=== PATIENT | male | born 1945 | race Caucasian/White ===

== ENCOUNTER 2018-11-15 23:47 | Emergency (ER) | payer BC, MEDICARE ==
[2018-11-16] MEDS ORDERED: Ketorolac 30 MG/ML SDV IVPUSH ONE (00:13)
--- NOTE | 2018-11-16 00:18 | EDM.PDOC ---
ED HPI GENERAL MEDICAL PROBLEM - General Chief Complaint: Chest Pain Stated Complaint: [facility] Time Seen by Provider: 11/16/18 00:09 Source of Information: Reports: Patient, Family, RN Notes Reviewed History Limitations: Reports: No Limitations - History of Present Illness INITIAL COMMENTS - FREE TEXT/NARRATIVE: 73-year-old gentleman presents to the emergency department day complaint of shortness of breath and chest pain with a deep breath, he states is been ill for about a week minimal sputum production does get chest pain with a deep breath this evening felt so weak he was unable to get up after he had fallen out of his chair, no other complaints at this time denies any fevers - Related Data Allergies Allergy/AdvReac Type Severity Reaction Status Date / Time No Known Allergies Allergy Verified 11/15/18 23:52 Home Meds: Home Meds Albuterol Sulfate [Proair Hfa] 8.5 gm IH Q4H PRN 09/02/14 [History] Furosemide 40 mg PO BID 09/02/14 [History] Lisinopril 10 mg PO DAILY 09/02/14 [History] Potassium Chloride [Klor-Con M20] 20 meq PO DAILY 09/02/14 [History] Warfarin Sodium 5 mg PO ASDIRECTED 09/02/14 [History] Warfarin [Coumadin] 2.5 mg PO ASDIRECTED 09/02/14 [History] glipiZIDE [Glipizide] 10 mg PO BID 09/02/14 [History] metFORMIN [Glucophage] 1,000 mg PO BID 09/02/14 [History] Albuterol [Ventolin HFA] 2 puff IH Q4H PRN 11/16/18 [History] Albuterol/Ipratropium [Combivent Respimat] 1 puff IN QID 11/16/18 [History] Albuterol/Ipratropium [DuoNeb 3.0-0.5 MG/3 ML] 3 ml NEB Q4H PRN 11/16/18 [ History] Insulin Degludec [Tresiba Flextouch U-100] 30 units SQ BEDTIME 11/16/18 [History ] Simvastatin 20 mg PO BEDTIME 11/16/18 [History] Past Medical History HEENT History: Reports: Hard of Hearing, Impaired Vision Cardiovascular History: Reports: Afib, Heart Failure Respiratory History: Reports: COPD, Other (See Below) Other Respiratory History: emphysema Endocrine/Metabolic History: Reports: Diabetes, Type II Social & Family History - Tobacco Use Smoking Status *Q: Current Every Day Smoker Years of Tobacco use: 60 Packs/Tins Daily: 1 ED ROS GENERAL - Review of Systems Review Of Systems: See Below Constitutional: Denies: Fever, Chills HEENT: Reports: No Symptoms Respiratory: Reports: Shortness of Breath, Wheezing, Cough Cardiovascular: Reports: Chest Pain GI/Abdominal: Reports: No Symptoms : Reports: No Symptoms Musculoskeletal: Reports: No Symptoms Skin: Reports: No Symptoms Neurological: Reports: No Symptoms ED EXAM, GENERAL - Physical Exam Exam: See Below Free Text/Narrative:: General: Male, not in any distress, alert and oriented x3 HEENT: head is atraumatic normocephalic, eyes pupils equal round reactive to light, sclera clear no conjunctivitis appreciated. Ears tympanic membranes clear and [place] landmarks and light reflex are present bilaterally canals are clear. Nose no septal deviation, nares are clear, no blood present. Mouth mucosa is moist and pink no erythema or exudate noted in soft palate, tongue is midline uvula is midline, dentition is intact. Neck: Supple no thyromegaly no tracheal deviation. Nodes: Cervical nodes subclavicular nodes nontender no palpable lymphadenopathy noted. Lungs: Breath sounds are distant on appreciate any adventitious noises CV: Regular rate and rhythm S1 and S2 appreciated no murmurs rubs or gallops noted. Abdomen: Soft, nontender, no palpable masses or organomegaly appreciated, no distention no guarding bowel sounds are present,. Neuro: Cranial nerves II through XII intact, GCS 15 Skin: Warm and dry, intact Extremities: No lower extremity edema appreciated, Course - Vital Signs Last Recorded V/S: Last Vital Signs Temp 98.9 F 11/16/18 00:03 Pulse 95 11/16/18 02:00 Resp 19 11/16/18 02:00 BP 120/66 11/16/18 02:00 Pulse Ox 95 11/16/18 02:00 - Orders/Labs/Meds Orders: Active Orders 24 hr Category Date Time Status Cardiac Monitoring [RC] .As Directed Care 11/16/18 00:12 Active EKG Documentation Completion [RC] ASDIRECTED Care 11/16/18 00:13 Active EKG 12 Lead [EK] Stat Ther 11/16/18 00:12 Ordered Labs: Laboratory Tests 11/16/18 11/16/18 11/16/18 Range/Units 00:21 00:21 00:21 WBC 9.6 (4.5-11.0) K/uL RBC 4.82 (4.30-5.90) M/uL Hgb 14.4 (12.0-15.0) g/dL Hct 44.5 (40.0-54.0) % MCV 92 (80-98) fL MCH 30 (27-31) pg MCHC 32 (32-36) % Plt Count 224 (150-400) K/uL Neut % (Auto) 78 H (36-66) % Lymph % (Auto) 9 L (24-44) % [place] % (Auto) 11 H (2-6) % Eos % (Auto) 1 L (2-4) % Baso % (Auto) 1 (0-1) % Sodium 139 L (140-148) mmol/L Potassium 3.8 (3.6-5.2) mmol/L Chloride 101 (100-108) mmol/L Carbon Dioxide 29 (21-32) mmol/L Anion Gap 12.8 (5.0-14.0) mmol/L BUN 16 (7-18) mg/dL Creatinine 1.2 (0.8-1.3) mg/dL Est Cr Clr Drug Dosing 51.46 mL/min Estimated GFR (MDRD) 59 L (>60) Glucose 167 H (74-106) mg/dL Lactic Acid 3.6 H (0.4-2.0) mmol/L Calcium 9.6 (8.5-10.1) mg/dL Total Bilirubin 0.8 (0.2-1.0) mg/dL AST 15 (15-37) U/L ALT 14 (12-78) U/L Alkaline Phosphatase 78 (46-116) U/L Creatine Kinase 72 (39-308) U/L CK-MB (CK-2) 0.6 (0-3.6) mg/mL Troponin I 0.047 (0.000-0.056) ng/mL NT-Pro-B Natriuret Pep (5-450) pg/mL Total Protein 7.1 (6.4-8.2) g/dL Albumin 3.5 (3.4-5.0) g/dL Globulin 3.6 H (2.3-3.5) g/dL Albumin/Globulin Ratio 1.0 L (1.2-2.2) 11/16/18 Range/Units 01:53 WBC (4.5-11.0) K/uL RBC (4.30-5.90) M/uL Hgb (12.0-15.0) g/dL Hct (40.0-54.0) % MCV (80-98) fL MCH (27-31) pg MCHC (32-36) % Plt Count (150-400) K/uL Neut % (Auto) (36-66) % Lymph % (Auto) (24-44) % [place] % (Auto) (2-6) % Eos % (Auto) (2-4) % Baso % (Auto) (0-1) % Sodium (140-148) mmol/L Potassium (3.6-5.2) mmol/L Chloride (100-108) mmol/L Carbon Dioxide (21-32) mmol/L Anion Gap (5.0-14.0) mmol/L BUN (7-18) mg/dL Creatinine (0.8-1.3) mg/dL Est Cr Clr Drug Dosing mL/min Estimated GFR (MDRD) (>60) Glucose (74-106) mg/dL Lactic Acid (0.4-2.0) mmol/L Calcium (8.5-10.1) mg/dL Total Bilirubin (0.2-1.0) mg/dL AST (15-37) U/L ALT (12-78) U/L Alkaline Phosphatase (46-116) U/L Creatine Kinase (39-308) U/L CK-MB (CK-2) (0-3.6) mg/mL Troponin I (0.000-0.056) ng/mL NT-Pro-B Natriuret Pep 607 H (5-450) pg/mL Total Protein (6.4-8.2) g/dL Albumin (3.4-5.0) g/dL Globulin (2.3-3.5) g/dL Albumin/Globulin Ratio (1.2-2.2) Meds: Medications Discontinued Medications Generic Name Dose Route Start Last Admin Trade Name Kayleigh PRN Reason Stop Dose Admin Ketorolac Tromethamine 15 mg 11/16/18 00:13 11/16/18 00:40 Toradol IVPUSH 11/16/18 00:14 15 mg ONETIME ONE Administration Departure - Departure Time of Disposition: 02:28 Disposition: Home, Self-Care 01 Condition: Fair Clinical Impression: COPD exacerbation Referrals: PCP,None [Primary Care Provider] - Forms: ED Department Discharge Additional Instructions: Take full course of antibiotics, take full course of prednisone, please follow- up with your primary care in 3-5 days for reevaluation call return to the emergency department with worsening of symptoms - My Orders Last 24 Hours: My Active Orders 11/16/18 00:12 Cardiac Monitoring [RC] .As Directed EKG 12 Lead [EK] Stat 11/16/18 00:13 EKG Documentation Completion [RC] ASDIRECTED - Assessment/Plan Last 24 Hours: My Active Orders 11/16/18 00:12 Cardiac Monitoring [RC] .As Directed EKG 12 Lead [EK] Stat 11/16/18 00:13 EKG Documentation Completion [RC] ASDIRECTED Plan: Assessment Acuity = acute Site and laterality = COPD exacerbation Etiology = unknown etiology Manifestations = dyspnea] Location of injury = Home Lab values = CBC, CMP unremarkable lactic acid elevated at 3.6 consistent lactic acidosis troponin normal range 0.047 BNP slightly elevated 607 chest x- ray does show questionable 11 mm nodule however he recently had a CT scan 5 months ago describing no acute process, EKG demonstrates atrial fibrillation Plan I did review lab work and x-ray results with him discuss options such as hospitalization. He declined at this time would like to try outpatient therapy first he's not having any chest pain is only of pain when he takes a deep breath however he is feeling much better this has resolved. Therefore will try doxycycline on her milligrams by mouth twice a day 7 days and prednisone 20 mg once day for 5 days have him follow-up with his primary care in 3-5 days if no improvement This note was dictated using [employer] voice recognition software please call with any questions on syntax or grammar.
--- NOTE | 2018-11-16 01:33 | CRLCR ---
INDICATION: chest pain HISTORY: Chest pain. COMPARISON: 11/15/2016. TECHNIQUE: Chest one-view portable. FINDINGS: Diffuse pulmonary hyperinflation, stable. Atelectasis or scarring at the lung bases. There is no acute airspace disease. There is an 11 millimeter opacity in the left upper lung zone on this single AP view. This is not clearly seen on the comparison study from 11/15/2016. There is no pneumothorax. The central airway is normal. Lateral costophrenic sulci are sharp. IMPRESSION: 1. No significant change when compared with 11/15/2016. 2. Questionable 11 mm density overlapping of the left posterior 3rd rib, which may be further evaluated on a nonemergent basis with a chest CT. Dictated by Luis E Christianson MD @ 11/16/2018 1:32:56 AM Dictated by: Luis E Christianson MD @ 11/16/2018 01:33:06 (Electronically Signed)
[2018-11-16 02:23] VITALS: BP 120/66
== END 2018-11-16 03:19 | disposition home or self-care (01) ==
LOC: JP.ED 23:47
DX: J44.1 Chronic obstructive pulmonary disease with (acute) exacerbation (principal); I50.9 Heart failure, unspecified; E11.9 Type 2 diabetes mellitus without complications; F17.210 Nicotine dependence, cigarettes, uncomplicated; Z79.899 Other long term (current) drug therapy
CPT/HCPCS: 36415; 71045; 80053; 82550; 82553; 83605; 83880; 84484; 85025; 93005; 96374; 99285; J1885

== ENCOUNTER 2019-05-24 14:00 | Observation (INO) | payer MEDICARE ==
--- NOTE | 2019-05-24 14:40 | EDM.PDOC ---
ED HPI GENERAL MEDICAL PROBLEM - General Chief Complaint: Gastrointestinal Problem Stated Complaint: DARK BLOOD IN STOOL Time Seen by Provider: 05/24/19 14:40 Source of Information: Reports: Patient History Limitations: Reports: No Limitations - History of Present Illness INITIAL COMMENTS - FREE TEXT/NARRATIVE: pt arrived with a history of black tarry stools for the past 3-4 days. He was seen at the clinic on saturday and he is not sure if the stool got checked for blood. His bms have been quite irregular. Onset: Gradual, Other ( last 3-4 days. ) Duration: Hour(s): Location: Reports: Abdomen, Other (pt is not having pain in the abdoman. ) Associated Symptoms: Reports: Weakness - Related Data Allergies Allergy/AdvReac Type Severity Reaction Status Date / Time No Known Allergies Allergy Verified 05/24/19 14:49 Home Meds: Home Meds Albuterol Sulfate [Proair Hfa] 8.5 gm IH Q4H PRN 09/02/14 [History] Furosemide 40 mg PO BID 09/02/14 [History] Lisinopril 10 mg PO DAILY 09/02/14 [History] Potassium Chloride [Klor-Con M20] 20 meq PO DAILY 09/02/14 [History] Warfarin Sodium 5 mg PO ASDIRECTED 09/02/14 [History] Warfarin [Coumadin] 2.5 mg PO ASDIRECTED 09/02/14 [History] glipiZIDE [Glipizide] 10 mg PO BID 09/02/14 [History] metFORMIN [Glucophage] 1,000 mg PO BID 09/02/14 [History] Albuterol [Ventolin HFA] 2 puff IH Q4H PRN 11/16/18 [History] Albuterol/Ipratropium [Combivent Respimat] 1 puff IN QID 11/16/18 [History] Albuterol/Ipratropium [DuoNeb 3.0-0.5 MG/3 ML] 3 ml NEB Q4H PRN 11/16/18 [ History] Insulin Degludec [Tresiba Flextouch U-100] 30 units SQ BEDTIME 11/16/18 [History ] Simvastatin 20 mg PO BEDTIME 11/16/18 [History] Past Medical History HEENT History: Reports: Hard of Hearing, Impaired Vision Cardiovascular History: Reports: Afib, Heart Failure Respiratory History: Reports: COPD, Other (See Below) Other Respiratory History: emphysema Endocrine/Metabolic History: Reports: Diabetes, Type II ED ROS GENERAL - Review of Systems Review Of Systems: See Below Constitutional: Reports: Weakness HEENT: Reports: No Symptoms Respiratory: Reports: No Symptoms Cardiovascular: Reports: No Symptoms Endocrine: Reports: No Symptoms GI/Abdominal: Reports: Black Stool : Reports: No Symptoms Musculoskeletal: Reports: No Symptoms Skin: Reports: No Symptoms Neurological: Reports: No Symptoms Psychiatric: Reports: No Symptoms ED EXAM, GI/ABD - Physical Exam Exam: See Below Text/Narrative:: pt arrived because he is having black tarry stools. Exam Limited By: No Limitations General Appearance: Alert, Anxious, Moderate Distress Ears: Normal TMs Nose: Normal Inspection Throat/Mouth: Normal Inspection Head: Atraumatic Neck: Normal Inspection Respiratory/Chest: No Respiratory Distress Cardiovascular: Regular Rate, Rhythm GI/Abdominal Exam: Soft, Non-Tender (Male) Exam: Deferred Rectal (Males) Exam: Black Stool, Other (no masses noted. ) Back Exam: Normal Inspection Course - Vital Signs Last Recorded V/S: Last Vital Signs Temp 35.6 C 05/24/19 14:37 Pulse 96 05/24/19 16:32 Resp 22 H 05/24/19 14:37 BP 117/68 05/24/19 16:32 Pulse Ox 96 05/24/19 16:32 - Orders/Labs/Meds Orders: Active Orders 24 hr Category Date Time Status Patient Status Manage Transfer [TRANSFER] Routine ADT 05/24/19 16:14 Active Sodium Chloride 0.9% [Normal Saline] 1,000 ml Med 05/24/19 14:45 Active IV ASDIRECTED Resuscitation Status Routine Resus Stat 05/24/19 16:18 Ordered Medication Orders Sodium Chloride (Normal Saline) 1,000 mls @ 300 mls/hr IV ASDIRECTED ROSA ELENA Last Admin: 05/24/19 15:01 Dose: 300 mls/hr Labs: Laboratory Tests 05/24/19 05/24/19 05/24/19 Range/Units 14:43 14:46 14:46 WBC 13.1 H (4.5-11.0) K/uL RBC 4.32 (4.30-5.90) M/uL Hgb 13.1 (12.0-15.0) g/dL Hct 40.3 (40.0-54.0) % MCV 93 (80-98) fL MCH 30 (27-31) pg MCHC 33 (32-36) % Plt Count 309 (150-400) K/uL Neut % (Auto) 72 H (36-66) % Lymph % (Auto) 18 L (24-44) % [place] % (Auto) 9 H (2-6) % Eos % (Auto) 1 L (2-4) % Baso % (Auto) 0 (0-1) % PT 24.2 H (9.5-12.0) sec INR 2.35 H (0.80-1.20) Sodium (140-148) mmol/L Potassium (3.6-5.2) mmol/L Chloride (100-108) mmol/L Carbon Dioxide (21-32) mmol/L Anion Gap (5.0-14.0) mmol/L BUN (7-18) mg/dL Creatinine (0.8-1.3) mg/dL Est Cr Clr Drug Dosing mL/min Estimated GFR (MDRD) (>60) Glucose (74-106) mg/dL Calcium (8.5-10.1) mg/dL Total Bilirubin (0.2-1.0) mg/dL AST (15-37) U/L ALT (12-78) U/L Alkaline Phosphatase (46-116) U/L C-Reactive Protein 0.57 H (0.0-0.3) mg/dL Total Protein (6.4-8.2) g/dL Albumin (3.4-5.0) g/dL Globulin (2.3-3.5) g/dL Albumin/Globulin Ratio (1.2-2.2) 05/24/19 Range/Units 14:46 WBC (4.5-11.0) K/uL RBC (4.30-5.90) M/uL Hgb (12.0-15.0) g/dL Hct (40.0-54.0) % MCV (80-98) fL MCH (27-31) pg MCHC (32-36) % Plt Count (150-400) K/uL Neut % (Auto) (36-66) % Lymph % (Auto) (24-44) % [place] % (Auto) (2-6) % Eos % (Auto) (2-4) % Baso % (Auto) (0-1) % PT (9.5-12.0) sec INR (0.80-1.20) Sodium 141 (140-148) mmol/L Potassium 4.1 (3.6-5.2) mmol/L Chloride 104 (100-108) mmol/L Carbon Dioxide 30 (21-32) mmol/L Anion Gap 7.1 (5.0-14.0) mmol/L BUN 22 H (7-18) mg/dL Creatinine 1.1 (0.8-1.3) mg/dL Est Cr Clr Drug Dosing 57.13 mL/min Estimated GFR (MDRD) > 60 (>60) Glucose 177 H (74-106) mg/dL Calcium 8.9 (8.5-10.1) mg/dL Total Bilirubin 0.7 (0.2-1.0) mg/dL AST 14 L (15-37) U/L ALT 17 (12-78) U/L Alkaline Phosphatase 77 (46-116) U/L C-Reactive Protein (0.0-0.3) mg/dL Total Protein 6.6 (6.4-8.2) g/dL Albumin 3.4 (3.4-5.0) g/dL Globulin 3.2 (2.3-3.5) g/dL Albumin/Globulin Ratio 1.1 L (1.2-2.2) Meds: Medications Generic Name Dose Route Start Last Admin Trade Name Freq PRN Reason Stop Dose Admin Sodium Chloride 1,000 mls @ 300 mls/hr 05/24/19 14:45 05/24/19 15:01 Normal Saline IV 300 mls/hr ASDIRECTED [facility] Administration - Re-Assessments/Exams Free Text/Narrative Re-Assessment/Exam: 05/24/19 15:45 stool is positive for blood. He is not having abdomanal pain. He has a hg of 13 , He has copd and is sob. 10/21 15:46 pt does have o2 sats at 97 05/24/19 17:04 chest sounded very congested and he had a chest xray that showed hyperinflation but no infiltrate. Departure - Departure Time of Disposition: 17:05 Disposition: Admitted As Inpatient 64 Condition: Fair Clinical Impression: Upper GI bleeding, History of Coumadin therapy - Discharge Information Referrals: Matty Clay MD [Primary Care Provider] - Forms: ED Department Discharge Care Plan Goals: admit to Dr medina - My Orders Last 24 Hours: My Active Orders 05/24/19 14:45 Sodium Chloride 0.9% [Normal Saline] 1,000 ml IV ASDIRECTED - Assessment/Plan Last 24 Hours: My Active Orders 05/24/19 14:45 Sodium Chloride 0.9% [Normal Saline] 1,000 ml IV ASDIRECTED
[2019-05-24] MEDS ORDERED: Sodium Chloride 0.9% 1,000 ML IV SCH (14:45)
--- NOTE | 2019-05-24 16:24 | CRLCR ---
Indication: Shortness of breath. COPD. Technique: PA and lateral views the chest were obtained. Comparison: January 16, 2019. Findings: The heart is normal in size. The lungs are hyperinflated. No infiltrate, pleural effusion, or pneumothorax is identified. Impression: Hyperinflation. Dictated by Lisa Leone MD @ May 24 2019 4:22PM Signed by Dr. Lisa Leone @ May 24 2019 4:23PM
--- NOTE | 2019-05-24 16:27 | PCM.HP.2 ---
H&P History of Present Illness - General Date of Service: 05/24/19 Admit Problem/Dx: Admission Diagnosis/Problem Admission Diagnosis/Problem Bleeding Source of Information: Patient, Family, Provider, RN Notes Reviewed History Limitations: Reports: No Limitations - History of Present Illness Initial Comments - Free Text/Narative: Mr. Gaffney is a 74-year-old gentleman who was admitted to observation status through the emergency department with a six-day history of melenic-appearing stools. First noted approximately 6 days ago, 4 days ago presented to the walk- in clinic labs were obtained and he was scheduled for outpatient colonoscopy on June 11. Since then he's had persistent melenic-appearing stool and he presented to the emergency department today for further evaluation. He is hemodynamically stable and his hemoglobin level is within normal range. Stool for occult blood was found to be positive. He is on long-term oral anticoagulation with warfarin because of underlying atrial fibrillation, INR was 2.2. - Related Data Allergies/Adverse Reactions: Allergies Allergy/AdvReac Type Severity Reaction Status Date / Time No Known Allergies Allergy Verified 05/24/19 14:49 Home Medications: Home Meds Albuterol Sulfate [Proair Hfa] 8.5 gm IH Q4H PRN 09/02/14 [History] Furosemide 40 mg PO BID 09/02/14 [History] Lisinopril 10 mg PO DAILY 09/02/14 [History] Potassium Chloride [Klor-Con M20] 20 meq PO DAILY 09/02/14 [History] Warfarin Sodium 5 mg PO ASDIRECTED 09/02/14 [History] Warfarin [Coumadin] 2.5 mg PO ASDIRECTED 09/02/14 [History] glipiZIDE [Glipizide] 10 mg PO BID 09/02/14 [History] metFORMIN [Glucophage] 1,000 mg PO BID 09/02/14 [History] Albuterol [Ventolin HFA] 2 puff IH Q4H PRN 11/16/18 [History] Albuterol/Ipratropium [Combivent Respimat] 1 puff IN QID 11/16/18 [History] Albuterol/Ipratropium [DuoNeb 3.0-0.5 MG/3 ML] 3 ml NEB Q4H PRN 11/16/18 [ History] Insulin Degludec [Tresiba Flextouch U-100] 30 units SQ BEDTIME 11/16/18 [History ] Simvastatin 20 mg PO BEDTIME 11/16/18 [History] Past Medical History HEENT History: Reports: Hard of Hearing, Impaired Vision Cardiovascular History: Reports: Afib, Heart Failure Respiratory History: Reports: COPD, Other (See Below) Other Respiratory History: emphysema Endocrine/Metabolic History: Reports: Diabetes, Type II Dermatologic History: Reports: Seborrheic Dermatitis - Past Surgical History Head Surgeries/Procedures: Reports: None HEENT Surgical History: Reports: Tonsillectomy Cardiovascular Surgical History: Reports: None Respiratory Surgical History: Reports: None Endocrine Surgical History: Reports: None Dermatological Surgical History: Reports: None Social & Family History - Tobacco Use Smoking Status *Q: Current Every Day Smoker Years of Tobacco use: 50 Packs/Tins Daily: 1 Used Tobacco, but Quit: No Second Hand Smoke Exposure: No - Caffeine Use Caffeine Use: Reports: Coffee, Soda - Recreational Drug Use Recreational Drug Use: No H&P Review of Systems - Review of Systems: Review Of Systems: See Below General: Reports: Weakness. Denies: Fever, Chills HEENT: Reports: No Symptoms Pulmonary: Reports: Shortness of Breath. Denies: Wheezing, Pleuritic Chest Pain , Cough, Sputum, Hemoptysis Cardiovascular: Reports: No Symptoms Gastrointestinal: Reports: Melena. Denies: Abdominal Pain, Constipation, Diarrhea, Decreased Appetite, Difficulty Swallowing, Distension, Hematemesis, Nausea, Vomiting Genitourinary: Reports: No Symptoms Musculoskeletal: Reports: No Symptoms Skin: Reports: No Symptoms Psychiatric: Reports: No Symptoms Neurological: Reports: No Symptoms Hematologic/Lymphatic: Reports: No Symptoms Immunologic: Reports: No Symptoms Exam - Exam Exam: See Below - Vital Signs Vital Signs: Last Vital Signs Temp 96.1 F 05/24/19 14:37 Pulse 97 05/24/19 14:37 Resp 22 H 05/24/19 14:37 BP 117/65 05/24/19 14:37 Pulse Ox 97 05/24/19 14:37 Weight: 218 lb - Exam Quality Assessment: DVT Prophylaxis General: Alert, Oriented, Cooperative, Mild Distress HEENT: Conjunctiva Clear, Hearing Intact, Mucosa Moist & [place], Normal Nasal Septum, Posterior Pharynx Clear, Pupils Equal Neck: Supple, Trachea Midline, +2 Carotid Pulse wo Bruit Lungs: Decreased Breath Sounds, Wheezing. No: Crackles, Rales, Rhonchi, Rub Cardiovascular: Regular Rate, Normal S1, Normal S2, Irregular Rhythm. No: Systolic Murmur, Diastolic Murmur GI/Abdominal Exam: Soft, Non-Tender, No Organomegaly, No Distention Back Exam: Normal Inspection, Full Range of Motion Extremities: Non-Tender, No Pedal Edema Skin: Warm, Dry Neurological: Cranial Nerves Intact, Strength Equal Bilateral, Normal Speech, Normal Tone, Sensation Intact. No: Focal Deficit Neuro Extensive - Mental Status: Alert, Oriented x3, Normal Mood/Affect, Normal Cognition, Memory Intact - Patient Data Lab Results Last 24 hrs: Laboratory Results - last 24 hr 05/24/19 05/24/19 05/24/19 Range/Units 14:43 14:46 14:46 WBC 13.1 H (4.5-11.0) K/uL RBC 4.32 (4.30-5.90) M/uL Hgb 13.1 (12.0-15.0) g/dL Hct 40.3 (40.0-54.0) % MCV 93 (80-98) fL MCH 30 (27-31) pg MCHC 33 (32-36) % Plt Count 309 (150-400) K/uL Neut % (Auto) 72 H (36-66) % Lymph % (Auto) 18 L (24-44) % [place] % (Auto) 9 H (2-6) % Eos % (Auto) 1 L (2-4) % Baso % (Auto) 0 (0-1) % PT 24.2 H (9.5-12.0) sec INR 2.35 H (0.80-1.20) Sodium (140-148) mmol/L Potassium (3.6-5.2) mmol/L Chloride (100-108) mmol/L Carbon Dioxide (21-32) mmol/L Anion Gap (5.0-14.0) mmol/L BUN (7-18) mg/dL Creatinine (0.8-1.3) mg/dL Est Cr Clr Drug Dosing mL/min Estimated GFR (MDRD) (>60) Glucose (74-106) mg/dL Calcium (8.5-10.1) mg/dL Total Bilirubin (0.2-1.0) mg/dL AST (15-37) U/L ALT (12-78) U/L Alkaline Phosphatase (46-116) U/L C-Reactive Protein 0.57 H (0.0-0.3) mg/dL Total Protein (6.4-8.2) g/dL Albumin (3.4-5.0) g/dL Globulin (2.3-3.5) g/dL Albumin/Globulin Ratio (1.2-2.2) 05/24/19 Range/Units 14:46 WBC (4.5-11.0) K/uL RBC (4.30-5.90) M/uL Hgb (12.0-15.0) g/dL Hct (40.0-54.0) % MCV (80-98) fL MCH (27-31) pg MCHC (32-36) % Plt Count (150-400) K/uL Neut % (Auto) (36-66) % Lymph % (Auto) (24-44) % [place] % (Auto) (2-6) % Eos % (Auto) (2-4) % Baso % (Auto) (0-1) % PT (9.5-12.0) sec INR (0.80-1.20) Sodium 141 (140-148) mmol/L Potassium 4.1 (3.6-5.2) mmol/L Chloride 104 (100-108) mmol/L Carbon Dioxide 30 (21-32) mmol/L Anion Gap 7.1 (5.0-14.0) mmol/L BUN 22 H (7-18) mg/dL Creatinine 1.1 (0.8-1.3) mg/dL Est Cr Clr Drug Dosing 57.13 mL/min Estimated GFR (MDRD) > 60 (>60) Glucose 177 H (74-106) mg/dL Calcium 8.9 (8.5-10.1) mg/dL Total Bilirubin 0.7 (0.2-1.0) mg/dL AST 14 L (15-37) U/L ALT 17 (12-78) U/L Alkaline Phosphatase 77 (46-116) U/L C-Reactive Protein (0.0-0.3) mg/dL Total Protein 6.6 (6.4-8.2) g/dL Albumin 3.4 (3.4-5.0) g/dL Globulin 3.2 (2.3-3.5) g/dL Albumin/Globulin Ratio 1.1 L (1.2-2.2) Result Diagrams: 05/24/19 14:46 05/24/19 14:46 Pepe Results Last 24 hrs: Microbiology 05/24/19 14:57 Stool Occult Blood (PEPE) - Final Stool / Feces *Q Meaningful Use (ADM) - VTE *Q VTE Pharmacological Contraindications *Q: Active Hemorrhage - VTE Risk Assess *Q Each Risk Factor Represents 1 Point: Obesity ( BMI > 25 kg/m2), Abnormal Pulmonary Function (COPD) Total Score 1 Point Risk Factors: 2 Each Risk Factor Represents 2 Points: None Total Score 2 Point Risk Factors: 0 Each Risk Factor Represents 3 Points: Age 75 Years or Greater Total Score 3 Point Risk Factors: 3 Each Risk Factor Represents 5 Points: None Total Score 5 Point Risk Factors: 0 Venous Thromboembolism Risk Factor Score *Q: 5 Problem List Initiated/Reviewed/Updated: Yes Orders Last 24hrs: Active Orders 24 hr Category Date Time Status Patient Status Manage Transfer [TRANSFER] Routine ADT 05/24/19 16:14 Ordered Sodium Chloride 0.9% [Normal Saline] 1,000 ml Med 05/24/19 14:45 Active IV ASDIRECTED Resuscitation Status Routine Resus Stat 05/24/19 16:18 Ordered Medication Orders Sodium Chloride (Normal Saline) 1,000 mls @ 300 mls/hr IV ASDIRECTED ROSA ELENA Last Admin: 05/24/19 15:01 Dose: 300 mls/hr Assessment/Plan Comment:: ASSESSMENT AND PLAN UPPER GI BLEED-history of melenic stool for the past 6 days. Hemoglobin within normal range, stool is found to be heme positive. Hemodynamically stable, he feels slightly more weak over the past week. -Nothing by mouth after midnight -Reverse warfarin with vitamin K -Old warfarin -Recheck hemoglobin later this evening and in a.m. -Followup INR in a.m. -Protonix 40 mg subcutaneous every 12 hours -Consult Dr. Leone for EGD in a.m. COPD-currently does not require home oxygen. Reports level of dyspnea has been stable. -Duo nebs 4 times daily -Continue home medical regimen MAINTENANCE ISSUES -DVT prophylaxis; SCUDs, hold on anticoagulation because of bleeding -GI prophylaxis; Protonix as above -Hill catheter; not indicated -Nutrition; consistent carb diet, nothing by mouth after midnight -Nicotine dependence; nicotine patch 21 mg daily CODE STATUS-FULL CODE ADMISSION STATUS-this patient will be admitted to observation status, expect no more than a one night hospital stay for evaluation and management of problems as outlined above. DISPOSITION-anticipate discharge to home after the hospital stay. PRIMARY CARE PROVIDER-Dr. Clay - Mortality Measure Prognosis:: Good
[2019-05-24] MEDS ORDERED: Pantoprazole 40 MG Vial IVPUSH ONE (17:07)
[2019-05-24] MEDS ORDERED: Sodium Chloride 0.9% 10 ML Syringe FLUSH PRN (17:30)
[2019-05-24] MEDS ORDERED: Glucose Gel 15 GM in 37.5 GM Tube PO PRN (17:30)
[2019-05-24] MEDS ORDERED: Phytonadione 5 MG in Sodium Chloride 0.9% 50 ML IV ONE (17:30)
[2019-05-24] MEDS ORDERED: 50% Dextrose in Water 50 ML Syringe IV PRN (17:30)
[2019-05-24] MEDS ORDERED: Acetaminophen 325 MG Tab PO PRN (17:30)
[2019-05-24] MEDS ORDERED: Ondansetron 4 MG/2 ML SDV IV PRN (17:30)
[2019-05-24] MEDS ORDERED: Albuterol 8 GM Inhaler INH PRN (17:30)
[2019-05-24] MEDS ORDERED: Pantoprazole 40 MG Vial IV SCH (18:00)
[2019-05-24] MEDS: Insulin Lispro 100 Unit/ML 3 ML KwikPen SUBCUT SCH ×2 (18:35→21:21)
[2019-05-24] MEDS: Lactated Ringers 1,000 ML IV SCH (19:39)
[2019-05-24] MEDS: metFORMIN 500 MG Tab PO SCH (19:41)
[2019-05-24] MEDS: Furosemide 40 MG Tab PO SCH (19:41)
[2019-05-24] MEDS ORDERED: Insulin Glargine,Human Rec. Analog 100 Units/ML 3 ML Pen SUBCUT SCH (21:00)
[2019-05-24] MEDS ORDERED: Simvastatin 20 MG Tab PO SCH (21:00)
[2019-05-24] MEDS: Albuterol/Ipratropium 3.0-0.5 MG/3 ML Neb Soln NEB SCH (21:23)
[2019-05-24] MEDS ORDERED: Diphtheria,Pertussis(Acell),Tetanus Vaccine 0.5 ML SDV IM ONE (22:38)
[2019-05-25] MEDS ORDERED: Pantoprazole 40 MG Vial IV SCH (06:00)
[2019-05-25] MEDS ORDERED: fentaNYL 100 MCG/2 ML SDV ONE (07:16)
[2019-05-25] MEDS ORDERED: Propofol 200 MG/20 ML SDV ONE (07:16)
[2019-05-25] MEDS: Albuterol/Ipratropium 3.0-0.5 MG/3 ML Neb Soln NEB SCH ×4 (07:36→20:32)
[2019-05-25] MEDS ORDERED: Diphtheria,Pertussis(Acell),Tetanus Vaccine 0.5 ML SDV IM ONE (08:45)
[2019-05-25] MEDS: Insulin Lispro 100 Unit/ML 3 ML KwikPen SUBCUT SCH ×4 (10:11→21:50)
[2019-05-25] MEDS: LISINOPRIL 10 MG PO SCH (10:51)
[2019-05-25] MEDS: Potassium Chloride 20 MEQ **PTOM PO SCH (10:51)
[2019-05-25] MEDS: FUROSEMIDE 80 MG PO SCH ×2 (10:52→15:03)
[2019-05-25] MEDS: METFORMIN 1000MG **PTOM PO SCH ×2 (10:52→16:32)
[2019-05-25] MEDS: metFORMIN 500 MG Tab PO SCH (11:06)
[2019-05-25] MEDS: Furosemide 40 MG Tab PO SCH (11:07)
--- NOTE | 2019-05-25 11:24 | OR ---
DATE OF PROCEDURE: 05/25/2019 SURGEON: Luis E Leone MD PROCEDURE: Esophagogastroduodenoscopy. FINDINGS: 1. Normal esophagogastroduodenoscopy, except small hiatal hernia. 2. No evidence of old or new blood. COMPLICATIONS: None. CONVERSION DEVELOPER: None. ANESTHESIA: MAC. RISKS: Risks, benefits, alternatives, and limitations including, but not limited to infection, bleeding, and perforation were explained to the patient, who wished to proceed. PROCEDURE IN DETAIL: The patient was placed in left lateral decubitus position. The esophagogastroduodenoscopy scope was introduced and advanced atraumatically to second part of the duodenum. No evidence of duodenitis. No ulceration. On retroflexion, there was a small hiatal hernia. No gastritis or ulceration. The GE junction was normal. The esophagus was normal. In summation, no etiology of gastrointestinal bleeding. No old or new blood or esophageal varices. Luis E Leone MD /[id number]
[2019-05-25] MEDS: Lactated Ringers 1,000 ML IV SCH (12:47)
--- NOTE | 2019-05-25 13:41 | PCM.PN ---
- General Info Date of Service: 05/25/19 Subjective Update: No acute events overnight. No report of melena or hematochezia. No abdominal pain. Hemoglobin has dropped down to 11 today. EGD this morning was unremarkable. No fevers. Functional Status: Reports: Pain Controlled, Tolerating Diet - Review of Systems Gastrointestinal: Denies: Abdominal Pain, Hematochezia - Patient Data Vitals - Most Recent: Last Vital Signs Temp 36.1 C 05/25/19 10:47 Pulse 84 05/25/19 10:47 Resp 18 05/25/19 10:47 BP 114/62 05/25/19 10:51 Pulse Ox 98 05/25/19 10:47 Weight - Most Recent: 96.162 kg I&O - Last 24 Hours: Intake & Output 05/24/19 05/25/19 05/25/19 22:59 06:59 14:59 Intake Total 590 875 75 Output Total 120 750 750 Balance 470 125 -675 Lab Results Last 24 Hours: Laboratory Results - last 24 hr 05/24/19 05/24/19 05/24/19 Range/Units 14:43 14:46 14:46 WBC 13.1 H (4.5-11.0) K/uL RBC 4.32 (4.30-5.90) M/uL Hgb 13.1 (12.0-15.0) g/dL Hct 40.3 (40.0-54.0) % MCV 93 (80-98) fL MCH 30 (27-31) pg MCHC 33 (32-36) % Plt Count 309 (150-400) K/uL Neut % (Auto) 72 H (36-66) % Lymph % (Auto) 18 L (24-44) % [place] % (Auto) 9 H (2-6) % Eos % (Auto) 1 L (2-4) % Baso % (Auto) 0 (0-1) % PT 24.2 H (9.5-12.0) sec INR 2.35 H (0.80-1.20) Sodium (140-148) mmol/L Potassium (3.6-5.2) mmol/L Chloride (100-108) mmol/L Carbon Dioxide (21-32) mmol/L Anion Gap (5.0-14.0) mmol/L BUN (7-18) mg/dL Creatinine (0.8-1.3) mg/dL Est Cr Clr Drug Dosing mL/min Estimated GFR (MDRD) (>60) Glucose (74-106) mg/dL Calcium (8.5-10.1) mg/dL Total Bilirubin (0.2-1.0) mg/dL AST (15-37) U/L ALT (12-78) U/L Alkaline Phosphatase (46-116) U/L C-Reactive Protein 0.57 H (0.0-0.3) mg/dL Total Protein (6.4-8.2) g/dL Albumin (3.4-5.0) g/dL Globulin (2.3-3.5) g/dL Albumin/Globulin Ratio (1.2-2.2) 05/24/19 05/25/19 05/25/19 Range/Units 14:46 05:30 05:30 WBC 11.1 H (4.5-11.0) K/uL RBC 3.86 L (4.30-5.90) M/uL Hgb 11.6 L (12.0-15.0) g/dL Hct 36.6 L (40.0-54.0) % MCV 95 (80-98) fL MCH 30 (27-31) pg MCHC 32 (32-36) % Plt Count 265 (150-400) K/uL Neut % (Auto) 70 H (36-66) % Lymph % (Auto) 18 L (24-44) % [place] % (Auto) 10 H (2-6) % Eos % (Auto) 1 L (2-4) % Baso % (Auto) 0 (0-1) % PT 14.4 H (9.5-12.0) sec INR 1.36 H (0.80-1.20) Sodium 141 (140-148) mmol/L Potassium 4.1 (3.6-5.2) mmol/L Chloride 104 (100-108) mmol/L Carbon Dioxide 30 (21-32) mmol/L Anion Gap 7.1 (5.0-14.0) mmol/L BUN 22 H (7-18) mg/dL Creatinine 1.1 (0.8-1.3) mg/dL Est Cr Clr Drug Dosing 57.13 mL/min Estimated GFR (MDRD) > 60 (>60) Glucose 177 H (74-106) mg/dL Calcium 8.9 (8.5-10.1) mg/dL Total Bilirubin 0.7 (0.2-1.0) mg/dL AST 14 L (15-37) U/L ALT 17 (12-78) U/L Alkaline Phosphatase 77 (46-116) U/L C-Reactive Protein (0.0-0.3) mg/dL Total Protein 6.6 (6.4-8.2) g/dL Albumin 3.4 (3.4-5.0) g/dL Globulin 3.2 (2.3-3.5) g/dL Albumin/Globulin Ratio 1.1 L (1.2-2.2) 05/25/19 Range/Units 05:30 WBC (4.5-11.0) K/uL RBC (4.30-5.90) M/uL Hgb (12.0-15.0) g/dL Hct (40.0-54.0) % MCV (80-98) fL MCH (27-31) pg MCHC (32-36) % Plt Count (150-400) K/uL Neut % (Auto) (36-66) % Lymph % (Auto) (24-44) % [place] % (Auto) (2-6) % Eos % (Auto) (2-4) % Baso % (Auto) (0-1) % PT (9.5-12.0) sec INR (0.80-1.20) Sodium 144 (140-148) mmol/L Potassium 3.6 (3.6-5.2) mmol/L Chloride 105 (100-108) mmol/L Carbon Dioxide 31 (21-32) mmol/L Anion Gap 7.9 (5.0-14.0) mmol/L BUN 22 H (7-18) mg/dL Creatinine 1.1 (0.8-1.3) mg/dL Est Cr Clr Drug Dosing 56.20 mL/min Estimated GFR (MDRD) > 60 (>60) Glucose 92 (74-106) mg/dL Calcium 8.8 (8.5-10.1) mg/dL Total Bilirubin (0.2-1.0) mg/dL AST (15-37) U/L ALT (12-78) U/L Alkaline Phosphatase (46-116) U/L C-Reactive Protein (0.0-0.3) mg/dL Total Protein (6.4-8.2) g/dL Albumin (3.4-5.0) g/dL Globulin (2.3-3.5) g/dL Albumin/Globulin Ratio (1.2-2.2) Pepe Results Last 24 Hours: Microbiology 05/24/19 14:57 Stool Occult Blood (PEPE) - Final Stool / Feces Med Orders - Current: Current Medications Acetaminophen (Tylenol) 650 mg PO Q4H PRN PRN Reason: Pain (Mild 1-3)/fever Albuterol (Ventolin Hfa) 0 gm INH Q4H PRN PRN Reason: Shortness of Breath Albuterol/Ipratropium (Duoneb 3.0-0.5 Mg/3 Ml) 3 ml NEB QIDRT [facility] Last Admin: 05/25/19 10:31 Dose: 3 ml Bisacodyl (Dulcolax) 10 mg PO ONETIME ONE Stop: 05/25/19 14:01 Dextrose (Glutose 15) 15 gm PO ONETIME PRN PRN Reason: Hypoglycemia Dextrose/Water (Dextrose 50% In Water) 50 ml IV ONETIME PRN PRN Reason: Hypoglycemia Diphtheria/Tetanus/Acell Pertussis (Adacel) 0.5 ml IM .ONCE ONE Stop: 05/26/19 09:01 Insulin Human Lispro (Humalog) 0 unit SUBCUT QIDACANDBED [facility]; Protocol Last Admin: 05/25/19 12:48 Dose: 1 unit Lisinopril (Prinivil) 10 mg PO DAILY [facility] Last Admin: 05/25/19 10:51 Dose: 10 mg Ondansetron HCl (Zofran) 4 mg IV Q4H PRN PRN Reason: Nausea/Vomiting Furosemide 80mg (Ptom) 0 each PO BIDDIURETIC [facility] Last Admin: 05/25/19 10:52 Dose: 1 each Metformin 1000mg (Ptom) 0 each PO BIDMEALS [facility] Last Admin: 05/25/19 10:52 Dose: 1 each Polyethylene Glycol (Miralax) 238 gm PO ONETIME ONE Stop: 05/25/19 15:01 Potassium Chloride (Klor-Con M20) 20 meq PO DAILY [facility] Last Admin: 05/25/19 10:51 Dose: 20 meq Simvastatin (Zocor) 20 mg PO BEDTIME ROSA ELENA Sodium Chloride (Saline Flush) 10 ml FLUSH ASDIRECTED PRN PRN Reason: Keep Vein Open Discontinued Medications Fentanyl (Sublimaze) Confirm Administered Dose 100 mcg .ROUTE .STK-MED ONE Stop: 05/25/19 07:17 Furosemide (Lasix) 40 mg PO BIDDIURETIC ROSA ELENA Last Admin: 05/25/19 11:07 Dose: Not Given Sodium Chloride (Normal Saline) 1,000 mls @ 300 mls/hr IV ASDIRECTED ROSA ELENA Last Admin: 05/24/19 15:01 Dose: 300 mls/hr Lactated Ringer's (Ringers, Lactated) 1,000 mls @ 75 mls/hr IV ASDIRECTED ROSA ELENA Last Admin: 05/25/19 12:47 Dose: 75 mls/hr Phytonadione 5 mg/ Sodium (Chloride) 50.5 mls @ 100 mls/hr IV NOW ONE Stop: 05/24/19 18:00 Last Admin: 05/24/19 18:17 Dose: 100 mls/hr Insulin Glargine (Lantus Solostar) 30 units SUBCUT BEDTIME ROSA ELENA Last Admin: 05/24/19 21:24 Dose: 30 units Insulin Glargine (Lantus Solostar) 30 units SUBCUT BEDTIME ROSA ELENA Metformin HCl (Glucophage) 1,000 mg PO BIDMEALS [facility] Last Admin: 05/25/19 11:06 Dose: Not Given Pantoprazole Sodium (Protonix Iv) 40 mg IVPUSH ONETIME ONE Stop: 05/24/19 17:08 Last Admin: 05/24/19 18:17 Dose: 40 mg Pantoprazole Sodium (Protonix Iv) 40 mg IV Q12H ROSA ELENA Last Admin: 05/25/19 06:25 Dose: 40 mg Propofol (Diprivan 20 Ml) Confirm Administered Dose 200 mg .ROUTE .STK-MED ONE Stop: 05/25/19 07:17 Simvastatin (Zocor) 20 mg PO BEDTIME ROS[facility] ELENA Last Admin: 05/24/19 21:25 Dose: 20 mg - Exam Quality Assessment: No: Supplemental Oxygen General: Alert, Oriented, Cooperative, No Acute Distress Lungs: Normal Respiratory Effort GI/Abdominal Exam: Soft, No Distention Extremities: No Pedal Edema Psy/Mental Status: Alert, Normal Affect - Problem List Review Problem List Initiated/Reviewed/Updated: Yes - My Orders Last 24 Hours: My Active Orders 05/25/19 13:39 Bisacodyl [Dulcolax] 10 mg PO ONETIME ONE Polyethylene Glycol 3350 [MiraLAX] 238 gm PO ONETIME ONE 05/25/19 13:40 Convert IV to Saline Lock [OM.PC] Routine 05/25/19 21:00 Insulin Glarg,Human.Rec.Analog [LantUS Solostar] 15 units SUBCUT BEDTIME 05/25/19 Dinner Clear Liquid Diet [DIET] NPO After Midnight [Nothing per Oral After Midnight Diet] [DIET] 05/26/19 05:00 BASIC METABOLIC PANEL,BMP [CHEM] Timed CBC W/O DIFF,HEMOGRAM [HEME] Timed (1) INR,PT,PROTHROMBIN TIME [COAG] Timed - Plan Plan:: ASSESSMENT AND PLAN UPPER GI BLEED, suspected - melena resolved. Hemoglobin dropped slightly from yesterday. EGD unremarkable. -Nothing by mouth after midnight -Bowel prep this afternoon -Colonoscopy in the morning Paroxysmal atrial fibrillation - chronically anticoagulated. -Continue medical management -Hold warfarin COPD - currently does not require home oxygen. Reports level of dyspnea has been stable. -Duo nebs 4 times daily -Continue home medical regimen Tobacco dependence - patient is interested in cessation. -Nicotine patch -Encourage cessation MAINTENANCE ISSUES -DVT prophylaxis; SCUDs, hold on anticoagulation because of bleeding -GI prophylaxis; Protonix as above -Hill catheter; not indicated -Nutrition; clear liquids this afternoon, nothing by mouth after midnight -Nicotine dependence; nicotine patch 21 mg daily ADMISSION STATUS - this patient will be admitted to observation status, expect no more than a one night hospital stay for evaluation and management of problems as outlined above. DISPOSITION - anticipate discharge to home after the hospital stay. Candido Novak M.D.
[2019-05-25] MEDS ORDERED: Bisacodyl 5 MG Tab PO ONE (14:00)
[2019-05-25] MEDS ORDERED: Polyethylene Glycol 3350 Powder 238 GM Bot PO ONE (15:00)
[2019-05-25] MEDS: Nicotine 21 MG/24 Hr Patch TRDERM SCH (16:30)
[2019-05-25] MEDS ORDERED: SIMVASTATIN 20 MG PO SCH (21:00)
[2019-05-25] MEDS ORDERED: Insulin Glargine,Human Rec. Analog 100 Units/ML 3 ML Pen SUBCUT SCH ×2 (21:00)
[2019-05-26] MEDS: Albuterol/Ipratropium 3.0-0.5 MG/3 ML Neb Soln NEB SCH ×2 (07:18→11:09)
[2019-05-26] MEDS ORDERED: Midazolam 1 MG/ML 2 ML SDV ONE (08:15)
[2019-05-26] MEDS ORDERED: Propofol 200 MG/20 ML SDV ONE (08:15)
[2019-05-26] MEDS ORDERED: fentaNYL 100 MCG/2 ML SDV ONE (08:15)
[2019-05-26] MEDS: Insulin Lispro 100 Unit/ML 3 ML KwikPen SUBCUT SCH ×2 (08:32→11:58)
[2019-05-26] MEDS ORDERED: Diphtheria,Pertussis(Acell),Tetanus Vaccine 0.5 ML SDV IM ONE (09:00)
[2019-05-26 10:37] VITALS: BP 118/65; PULSE 87
[2019-05-26] MEDS: Nicotine 21 MG/24 Hr Patch TRDERM SCH (10:42)
[2019-05-26] MEDS: FUROSEMIDE 80 MG PO SCH (10:45)
[2019-05-26] MEDS: Potassium Chloride 20 MEQ **PTOM PO SCH (10:46)
[2019-05-26] MEDS: METFORMIN 1000MG **PTOM PO SCH (10:46)
[2019-05-26] MEDS: LISINOPRIL 10 MG PO SCH (10:48)
--- NOTE | 2019-05-26 12:29 | PCM.DCSUM1 ---
Discharge Summary - Hospital Course Brief History: 74-year-old male with history of atrial fibrillation on chronic anticoagulation, insulin-dependent diabetes mellitus who presented with several days of melena. He was admitted for management of gastrointestinal bleeding. Diagnosis: Stroke: No - Discharge Data Discharge Date: 05/26/19 Discharge Disposition: Home, Self-Care 01 Condition: Fair - Referral to Home Health Primary Care Physician: Matty Clay MD - Discharge Diagnosis/Problem(s) (1) Diverticular hemorrhage SNOMED Code(s): 232570706, 039586584 ICD Code: K57.31 - DVRTCLOS OF LG INT W/O PERFORATION OR ABSCESS W BLEEDING Status: Acute (2) History of Coumadin therapy SNOMED Code(s): 076272812 ICD Code: Z92.29 - PERSONAL HISTORY OF OTHER DRUG THERAPY Status: Acute - Patient Summary/Data Consults: Consultations 05/24/19 17:30 Consult to Physician [CONS] Routine Consulting Provider: Luis E Leone Call Completed to Consulting Physician: Yes Reason for Consult: UGI Bleed Labs Pending at D/C: Pathology from biopsy taken during the colonoscopy Hospital Course: Carlo presented to the emergency room with several days of melena. Workup in the emergency room was fairly unremarkable and his hemoglobin was in the normal range. He was admitted to the hospital for expedited workup. He did receive vitamin K to reverse his INR which was therapeutic at the time of presentation. The morning after admission he had an EGD performed which was unremarkable with no evidence for gastritis or ulceration. His hemoglobin dropped from 13 down to around 11.5. There is no obvious evidence for ongoing bleeding. We elected to complete a colonoscopy prep the day after admission with plan for colonoscopy the next morning. He did have a colonoscopy on the morning of discharge. The prep was incomplete. No obvious source of bleeding was identified but he did have extensive diverticulosis. Also noted was a concerning lesion in the right colon which was biopsied and tattooed. Pathology is pending at the time of discharge. His hemoglobin has been stable. He tolerated a regular diet. There is no evidence for ongoing bleeding. He'll be discharged home at this time. He can resume his warfarin. He will be following up once pathology is available. - Patient Instructions Diet: Diabetic Diet Activity: As Tolerated Driving: May Drive Today Showering/Bathing: May Shower Notify Provider of: Fever, Increased Pain, Nausea and/or Vomiting Other/Special Instructions: 1. Resume your usual home medications. 2. You will be contacted with the results of your biopsy taken during the colonoscopy later this week or early next week. 3. Seek medical attention if your bleeding returns - Discharge Plan *PRESCRIPTION DRUG MONITORING PROGRAM REVIEWED*: Not Applicable *COPY OF PRESCRIPTION DRUG MONITORING REPORT IN PATIENT FAIZAN: Not Applicable Home Medications: Home Meds Albuterol Sulfate [Proair Hfa] 8.5 gm IH Q4H PRN 09/02/14 [History] Furosemide 40 mg PO BID 09/02/14 [History] Lisinopril 10 mg PO DAILY 09/02/14 [History] Potassium Chloride [Klor-Con M20] 20 meq PO DAILY 09/02/14 [History] Warfarin Sodium 5 mg PO ASDIRECTED 09/02/14 [History] Warfarin [Coumadin] 2.5 mg PO ASDIRECTED 09/02/14 [History] glipiZIDE [Glipizide] 10 mg PO BID 09/02/14 [History] metFORMIN [Glucophage] 1,000 mg PO BID 09/02/14 [History] Albuterol [Ventolin HFA] 2 puff IH Q4H PRN 11/16/18 [History] Albuterol/Ipratropium [Combivent Respimat] 1 puff IN QID 11/16/18 [History] Albuterol/Ipratropium [DuoNeb 3.0-0.5 MG/3 ML] 3 ml NEB Q4H PRN 11/16/18 [ History] Insulin Degludec [Tresiba Flextouch U-100] 30 units SQ BEDTIME 11/16/18 [History ] Simvastatin 20 mg PO BEDTIME 11/16/18 [History] Oxygen Therapy Mode: Room Air Patient Handouts: Gastrointestinal Bleeding Referrals: Matty Clay MD [Primary Care Provider] - (1 week - recheck after GI bleeding ) - Discharge Summary/Plan Comment DC Time >30 min.: No - Patient Data Vitals - Most Recent: Last Vital Signs Temp 35.8 C 05/26/19 10:33 Pulse 87 05/26/19 10:33 Resp 18 05/26/19 10:33 BP 118/65 05/26/19 10:48 Pulse Ox 98 05/26/19 10:33 Weight - Most Recent: 96.162 kg I&O - Last 24 hours: Intake & Output 05/25/19 05/26/19 05/26/19 22:59 06:59 14:59 Intake Total 2570 425 Output Total 600 Balance 1970 425 Lab Results - Last 24 hrs: Laboratory Results - last 24 hr 05/26/19 05/26/19 05/26/19 Range/Units 05:15 05:15 05:15 WBC 10.5 (4.5-11.0) K/uL RBC 3.94 L (4.30-5.90) M/uL Hgb 11.8 L (12.0-15.0) g/dL Hct 37.1 L (40.0-54.0) % MCV 94 (80-98) fL MCH 30 (27-31) pg MCHC 32 (32-36) % Plt Count 257 (150-400) K/uL PT 10.9 (9.5-12.0) sec INR 1.01 (0.80-1.20) Sodium 144 (140-148) mmol/L Potassium 3.7 (3.6-5.2) mmol/L Chloride 105 (100-108) mmol/L Carbon Dioxide 30 (21-32) mmol/L Anion Gap 8.7 (5.0-14.0) mmol/L BUN 15 (7-18) mg/dL Creatinine 1.0 (0.8-1.3) mg/dL Est Cr Clr Drug Dosing 61.83 mL/min Estimated GFR (MDRD) > 60 (>60) Glucose 110 H (74-106) mg/dL Calcium 8.7 (8.5-10.1) mg/dL Med Orders - Current: Current Medications Acetaminophen (Tylenol) 650 mg PO Q4H PRN PRN Reason: Pain (Mild 1-3)/fever Albuterol (Ventolin Hfa) 0 gm INH Q4H PRN PRN Reason: Shortness of Breath Albuterol/Ipratropium (Duoneb 3.0-0.5 Mg/3 Ml) 3 ml NEB QIDRT [facility] Last Admin: 05/26/19 11:09 Dose: 3 ml Dextrose (Glutose 15) 15 gm PO ONETIME PRN PRN Reason: Hypoglycemia Dextrose/Water (Dextrose 50% In Water) 50 ml IV ONETIME PRN PRN Reason: Hypoglycemia Insulin Glargine (Lantus Solostar) 15 units SUBCUT BEDTIME [facility] Last Admin: 05/25/19 21:51 Dose: 15 unit Insulin Human Lispro (Humalog) 0 unit SUBCUT QIDACANDBED [facility]; Protocol Last Admin: 05/26/19 11:58 Dose: Not Given Lisinopril (Prinivil) 10 mg PO DAILY [facility] Last Admin: 05/26/19 10:48 Dose: 10 mg Nicotine (Habitrol) 21 mg TRDERM DAILY [facility] Last Admin: 05/26/19 10:42 Dose: 21 mg Ondansetron HCl (Zofran) 4 mg IV Q4H PRN PRN Reason: Nausea/Vomiting Furosemide 80mg (Ptom) 0 each PO BIDDIURETIC [facility] Last Admin: 05/26/19 10:45 Dose: 1 each Metformin 1000mg (Ptom) 0 each PO BIDMEALS [facility] Last Admin: 05/26/19 10:46 Dose: 1 each Potassium Chloride (Klor-Con M20) 20 meq PO DAILY [facility] Last Admin: 05/26/19 10:46 Dose: 20 meq Simvastatin (Zocor) 20 mg PO BEDTIME [facility] Last Admin: 05/25/19 20:25 Dose: 20 mg Sodium Chloride (Saline Flush) 10 ml FLUSH ASDIRECTED PRN PRN Reason: Keep Vein Open Discontinued Medications Bisacodyl (Dulcolax) 10 mg PO ONETIME ONE Stop: 05/25/19 14:01 Last Admin: 05/25/19 14:59 Dose: 10 mg Diphtheria/Tetanus/Acell Pertussis (Adacel) 0.5 ml IM .ONCE ONE Stop: 05/26/19 09:01 Last Admin: 05/26/19 11:01 Dose: 0.5 ml Fentanyl (Sublimaze) Confirm Administered Dose 100 mcg .ROUTE .STK-MED ONE Stop: 05/25/19 07:17 Fentanyl (Sublimaze) Confirm Administered Dose 100 mcg .ROUTE .STK-MED ONE Stop: 05/26/19 08:16 Furosemide (Lasix) 40 mg PO BIDDIURETIC [facility] Last Admin: 05/25/19 11:07 Dose: Not Given Sodium Chloride (Normal Saline) 1,000 mls @ 300 mls/hr IV ASDIRECTED [facility] Last Admin: 05/24/19 15:01 Dose: 300 mls/hr Lactated Ringer's (Ringers, Lactated) 1,000 mls @ 75 mls/hr IV ASDIRECTED [facility] Last Admin: 05/25/19 12:47 Dose: 75 mls/hr Phytonadione 5 mg/ Sodium (Chloride) 50.5 mls @ 100 mls/hr IV NOW ONE Stop: 05/24/19 18:00 Last Admin: 05/24/19 18:17 Dose: 100 mls/hr Insulin Glargine (Lantus Solostar) 30 units SUBCUT BEDTIME [facility] Last Admin: 05/24/19 21:24 Dose: 30 units Insulin Glargine (Lantus Solostar) 30 units SUBCUT BEDTIME [facility] Metformin HCl (Glucophage) 1,000 mg PO BIDMEALS [facility] Last Admin: 05/25/19 11:06 Dose: Not Given Midazolam HCl (Versed 1 Mg/Ml) Confirm Administered Dose 2 mg .ROUTE .STK-MED ONE Stop: 05/26/19 08:16 Pantoprazole Sodium (Protonix Iv) 40 mg IVPUSH ONETIME ONE Stop: 05/24/19 17:08 Last Admin: 05/24/19 18:17 Dose: 40 mg Pantoprazole Sodium (Protonix Iv) 40 mg IV Q12H [facility] Last Admin: 05/25/19 06:25 Dose: 40 mg Polyethylene Glycol (Miralax) 238 gm PO ONETIME ONE Stop: 05/25/19 15:01 Last Admin: 05/25/19 16:31 Dose: 238 gm Propofol (Diprivan 20 Ml) Confirm Administered Dose 200 mg .ROUTE .STK-MED ONE Stop: 05/25/19 07:17 Propofol (Diprivan 20 Ml) Confirm Administered Dose 200 mg .ROUTE .STK-MED ONE Stop: 05/26/19 08:16 Simvastatin (Zocor) 20 mg PO BEDTIME [facility] Last Admin: 05/24/19 21:25 Dose: 20 mg - Exam Quality Assessment: Denies: Supplemental Oxygen General: Reports: Alert, Oriented, Cooperative, No Acute Distress Lungs: Reports: Normal Respiratory Effort GI/Abdominal Exam: Soft, No Distention Extremities: No Pedal Edema *Q Meaningful Use (DIS) - VTE *Q VTE Pharmacological Contraindications *Q: Active Hemorrhage
--- NOTE | 2019-05-26 15:37 | OR ---
DATE OF PROCEDURE: 05/26/2019 SURGEON: Luis E Leone MD PROCEDURE: Colonoscopy. FINDINGS: 1. Poor colon prep. 2. Diverticulosis, extensive, throughout entire colon. 3. Sessile type lesion in the ascending colon, biopsied using cold biopsy forceps and tattooed using [employer]. PREOPERATIVE DIAGNOSIS: Gastrointestinal bleeding. POSTOPERATIVE DIAGNOSIS: Gastrointestinal bleeding. RISKS: Risks, benefits, alternatives, and limitations including, but not limited to infection, bleeding, and perforation explained to the patient, who wished to proceed. PROCEDURE IN DETAIL: The patient was placed in left lateral decubitus position. Digital rectal exam was performed without abnormality. The scope was introduced and advanced atraumatically to the ileocecal valve. A photo was taken of this. Scope was brought back through the ascending, transverse, descending colon, and retroflexed. The colon prep was described as very poor with solid and liquid stool remaining. Diverticulosis would be described as significant and extensive throughout the entire colon. There was no evidence of old or new blood. No abnormalities on retroflexion, although soft mucus stool precluded complete observation like the remainder of the colon. Luis E Leone MD /[id number]
== END 2019-05-26 13:05 | disposition home or self-care (01) ==
LOC: JP.ED 14:00 → JP.MS 16:14
PROVIDERS: ADMIT Hospitalist; ATTEND Internal Medicine
DX: K92.2 Gastrointestinal hemorrhage, unspecified (principal); I50.9 Heart failure, unspecified; J43.9 Emphysema, unspecified; I48.91 Unspecified atrial fibrillation; E11.9 Type 2 diabetes mellitus without complications; F17.210 Nicotine dependence, cigarettes, uncomplicated; Z79.899 Other long term (current) drug therapy; Z79.01 Long term (current) use of anticoagulants; Z79.4 Long term (current) use of insulin
CPT/HCPCS: 36415; 71046; 80048; 80053; 82272; 82962; 85025; 85027; 85610; 86140; 90715; 94640; 96360; 99283; 99285; A9270; C9113; J1815; J2250; J2704; J3010; J3430; J7030; J7050; J7120; J7620-GY

== ENCOUNTER 2021-07-26 11:36 | Emergency (ER) | payer MEDICARE ==
[2021-07-26] MEDS ORDERED: hydrOXYzine HCl 10 MG Tab PO ONE (12:10)
--- NOTE | 2021-07-26 12:19 | EDM.PDOC ---
ED HPI GENERAL MEDICAL PROBLEM - General Chief Complaint: General Stated Complaint: FALL VIA NORTH Time Seen by Provider: 07/26/21 11:40 Source of Information: Reports: Patient, EMS History Limitations: Reports: No Limitations - History of Present Illness INITIAL COMMENTS - FREE TEXT/NARRATIVE: 76-year-old male, diabetic and chronic smoker has been more weak over the past several weeks. Apparently he fell a couple days ago, managed to crawl back into bed and then felt better later. Today he was standing at the counter in his kitchen when his legs gave out and he fell to the floor. He rubbed his left arm on the walker and sustained a superficial skin tear, he did not hurt himself but was too weak to get up so the ambulance was called. They did a lift assist but with his laceration to the arm and his increasing weakness they figured he should be checked. His only complaint right now is that he itches and needs an itching pill, he does not feel more short of breath than usual, he is fully vaccinated for Covid, he has not had any dark stools, nausea or vomiting, diarrhea or other complaints. Onset: Unknown/Unsure Duration: Week(s): (Apparently he has been having some increased weakness for the last few weeks) Location: Reports: Other (Skin tear to the left forearm, no other injury) Associated Symptoms: Reports: Cough (Chronic cough), Shortness of Breath (Dyspnea with exertion is stable and chronic, he is a smoker), Weakness. Denies: Confusion, Chest Pain, Fever/Chills, Nausea/Vomiting Leg Pain Score (Numeric/FACES): 7 - Related Data Allergies Allergy/AdvReac Type Severity Reaction Status Date / Time No Known Allergies Allergy Verified 07/26/21 11:47 Home Meds: Home Meds Furosemide 40 mg PO BID 09/02/14 [History] Lisinopril 10 mg PO DAILY 09/02/14 [History] Potassium Chloride [Klor-Con M20] 20 meq PO DAILY 09/02/14 [History] Warfarin Sodium 5 mg PO ASDIRECTED 09/02/14 [History] Warfarin [Coumadin] 2.5 mg PO ASDIRECTED 09/02/14 [History] glipiZIDE [Glipizide] 10 mg PO BID 09/02/14 [History] metFORMIN [Glucophage] 1,000 mg PO BID 09/02/14 [History] Albuterol [Ventolin HFA] 2 puff IH Q4H PRN 11/16/18 [History] Albuterol/Ipratropium [Combivent Respimat] 1 puff IN QID 11/16/18 [History] Albuterol/Ipratropium [DuoNeb 3.0-0.5 MG/3 ML] 3 ml NEB Q4H PRN 11/16/18 [History] Insulin Degludec [Tresiba Flextouch U-100] 30 units SQ BEDTIME 11/16/18 [History] Simvastatin 20 mg PO BEDTIME 11/16/18 [History] Hydrocodone/Acetaminophen [Hydrocodon-Acetaminophen 5-300] 1 each PO Q6HR PRN 07/26/21 [History] Past Medical History HEENT History: Reports: Hard of Hearing, Impaired Vision Cardiovascular History: Reports: Afib, Heart Failure, High Cholesterol Respiratory History: Reports: COPD, Other (See Below) Other Respiratory History: emphysema Endocrine/Metabolic History: Reports: Diabetes, Type II Dermatologic History: Reports: Seborrheic Dermatitis - Infectious Disease History Infectious Disease History: Reports: Chicken Pox - Past Surgical History Head Surgeries/Procedures: Reports: None HEENT Surgical History: Reports: Tonsillectomy Cardiovascular Surgical History: Reports: None Respiratory Surgical History: Reports: None Endocrine Surgical History: Reports: None Dermatological Surgical History: Reports: None Social & Family History - Tobacco Use Tobacco Use Status *Q: Current Every Day Tobacco User Years of Tobacco use: 50 Packs/Tins Daily: 1 - Caffeine Use Caffeine Use: Reports: Coffee, Soda - Recreational Drug Use Recreational Drug Use: No ED ROS GENERAL - Review of Systems Review Of Systems: See Below Constitutional: Denies: Fever, Chills, Malaise HEENT: Reports: No Symptoms Respiratory: Reports: Shortness of Breath, Cough Cardiovascular: Denies: Chest Pain GI/Abdominal: Reports: Constipation (He does have some issues with constipation). Denies: Abdominal Pain, Diarrhea, Nausea, Vomiting : Denies: Frequency, Incontinence, Urgency Skin: Reports: Bruising, Other (Skin tear to the left forearm) Neurological: Reports: Weakness. Denies: Dizziness, Headache Psychiatric: Reports: No Symptoms ED EXAM, GENERAL - Physical Exam Exam: See Below Exam Limited By: No Limitations General Appearance: Alert, No Apparent Distress, Other (Patient is oriented, answering questions appropriately) Eye Exam: Bilateral Eye: Normal Inspection Head: Atraumatic Neck: Supple, Non-Tender Respiratory/Chest: No Respiratory Distress, Other (Diffuse decreased breath sounds but no rales or rhonchi in the bases, no expiratory wheezes) Cardiovascular: Regular Rate, Rhythm. No: Extra Beats GI/Abdominal: Soft, Non-Tender Extremities: Pedal Edema (1+ symmetric ankle edema bilaterally) Neurological: Alert, Oriented, No Motor/Sensory Deficits Psychiatric: Normal Affect, Normal Mood Skin Exam: Other (3 x 3 cm epidermal skin tear on the left forearm, recent bruising on the right forearm as well.) Course - Vital Signs Last Recorded V/S: Last Vital Signs Temp 98.2 F 07/26/21 11:42 Pulse 88 07/26/21 12:59 Resp 16 07/26/21 11:42 BP 107/59 L 07/26/21 12:59 Pulse Ox 93 L 07/26/21 12:59 - Orders/Labs/Meds Labs: Laboratory Tests 07/26/21 07/26/21 07/26/21 Range/Units 12:30 12:30 12:39 WBC 11.6 H (4.5-11.0) K/uL RBC 4.31 (4.30-5.90) M/uL Hgb 13.2 (12.0-15.0) g/dL Hct 40.6 (40.0-54.0) % MCV 94 (80-98) fL MCH 31 (27-31) pg MCHC 33 (32-36) % Plt Count 227 (150-400) K/uL Neut % (Auto) 80.7 H (36-66) % Lymph % (Auto) 9.1 L (24-44) % [place] % (Auto) 9.1 H (2-6) % Eos % (Auto) 0.8 L (2-4) % Baso % (Auto) 0.3 (0-1) % PT (9.2-10.6) sec INR Sodium 147 (140-148) mmol/L Potassium 3.9 (3.6-5.2) mmol/L Chloride 105 (100-108) mmol/L Carbon Dioxide 32 (21-32) mmol/L Anion Gap 9.8 (5.0-14.0) mmol/L BUN 33 H D (7-18) mg/dL Creatinine 1.3 (0.8-1.3) mg/dL Est Cr Clr Drug Dosing 45.31 mL/min Estimated GFR (MDRD) 53 L (>60) Glucose 120 H (74-106) mg/dL Calcium 9.0 (8.5-10.1) mg/dL Influenza Type A RNA Negative (NEGATIVE) RSV RNA (INAAT) Negative (NEGATIVE) Influenza Type B RNA Negative (NEGATIVE) SARS-CoV-2 RNA (CONCEPCION) Negative (NEGATIVE) 07/26/21 Range/Units 12:50 WBC (4.5-11.0) K/uL RBC (4.30-5.90) M/uL Hgb (12.0-15.0) g/dL Hct (40.0-54.0) % MCV (80-98) fL MCH (27-31) pg MCHC (32-36) % Plt Count (150-400) K/uL Neut % (Auto) (36-66) % Lymph % (Auto) (24-44) % [place] % (Auto) (2-6) % Eos % (Auto) (2-4) % Baso % (Auto) (0-1) % PT 52.4 H (9.2-10.6) sec INR 5.4 H* Sodium (140-148) mmol/L Potassium (3.6-5.2) mmol/L Chloride (100-108) mmol/L Carbon Dioxide (21-32) mmol/L Anion Gap (5.0-14.0) mmol/L BUN (7-18) mg/dL Creatinine (0.8-1.3) mg/dL Est Cr Clr Drug Dosing mL/min Estimated GFR (MDRD) (>60) Glucose (74-106) mg/dL Calcium (8.5-10.1) mg/dL Influenza Type A RNA (NEGATIVE) RSV RNA (INAAT) (NEGATIVE) Influenza Type B RNA (NEGATIVE) SARS-CoV-2 RNA (CONCEPCION) (NEGATIVE) Meds: Medications Discontinued Medications Generic Name Dose Route Start Last Admin Trade Name Freq PRN Reason Stop Dose Admin Hydroxyzine HCl 10 mg 07/26/21 12:10 07/26/21 13:26 Hydroxyzine Hcl 10 Mg Tab PO 07/26/21 12:11 10 mg ONETIME ONE Administration - Re-Assessments/Exams Free Text/Narrative Re-Assessment/Exam: 07/26/21 12:21 We will check a rapid Covid, CBC, BMP, 1 view chest x-ray and the patient is asking for his "itching pill" so we will give him 10 mg of hydroxyzine. No x- rays are needed. 07/26/21 13:24 Left arm was dressed, labs were reassuring except INR was 5.4. Coumadin clinic was informed and the patient will hold his Coumadin today and tomorrow, recheck his INR on Saturday. At that time he will visit with Dr. Clay regarding possibly getting a wheelchair for home. Departure - Departure Time of Disposition: 14:20 Disposition: Home, Self-Care 01 Clinical Impression: Weakness, Skin tear of left upper extremity, Supratherapeutic INR - Discharge Information Instructions: Weakness, [id number] Referrals: PCP,None [Primary Care Provider] - Forms: ED Department Discharge Care Plan Goals: Recheck on Saturday for another INR, and discuss with Dr. Clay possibly using a wheelchair or further evaluation for your ongoing weakness. Try to decrease or stop her smoking if possible. Do not take any Coumadin until your INR is rechecked on Saturday. Sepsis Event Note (ED) - Evaluation Sepsis Screening Result: No Definite Risk - Focused Exam Vital Signs: Vital Signs Temp Pulse Resp BP Pulse Ox 07/26/21 12:59 88 107/59 L 93 L 07/26/21 11:42 98.2 F 70 16 120/55 L 93 L 07/26/21 11:40 98.2 F 70 16 120/55 L 93 L
[2021-07-26 12:59] VITALS: BP 107/59; PULSE 88
--- NOTE | 2021-07-26 13:10 | CR ---
CHEST: Portable 07/26/2021 at 12:40 PM CLINICAL HISTORY:Cough and weakness COMPARISON:2019 FINDINGS: Heart is enlarged. Pulmonary vascular is normal. Lungs are emphysematous. No infiltrates are seen. There are atherosclerotic changes in the aorta. Impression: Cardiomegaly Emphysematous changes
[2021-07-26 13:19] LABS: CORONAVIRUS COVID-19 NAA NEGATIVE (NEGATIVE)
== END 2021-07-26 14:20 | disposition home or self-care (01) ==
LOC: JP.ED 11:36
DX: S51.812A Laceration without foreign body of left forearm, initial encounter (principal); R53.1 Weakness; R79.1 Abnormal coagulation profile; I48.91 Unspecified atrial fibrillation; J44.9 Chronic obstructive pulmonary disease, unspecified; E78.00 Pure hypercholesterolemia, unspecified; E11.9 Type 2 diabetes mellitus without complications; I50.9 Heart failure, unspecified; Z79.01 Long term (current) use of anticoagulants; Z79.84 Long term (current) use of oral hypoglycemic drugs; Z72.0 Tobacco use; Z20.822 Contact with and (suspected) exposure to COVID-19; W18.39XA Other fall on same level, initial encounter; W26.8XXA Contact with other sharp object(s), not elsewhere classified, initial encounter; Y92.000 Kitchen of unspecified non-institutional (private) residence as the place of occurrence of the external cause
CPT/HCPCS: 0241U; 36415; 71045; 80048; 85025; 85610; 99285; A9270

== ENCOUNTER 2022-08-04 21:47 | Emergency (ER) | payer MEDICARE ==
[2022-08-04] MEDS ORDERED: Sodium Chloride 0.9% 10 ML Syringe FLUSH PRN (21:54)
[2022-08-04] MEDS ORDERED: Erythromycin Base 0.5% Ophth Oint 1 GM Tube EYELF ONE (22:22)
[2022-08-04 22:40] LABS: TROPONIN I HIGH SENSITIVITY 854.8 pg/mL (<=60.3)
[2022-08-04 22:45] LABS: CORONAVIRUS COVID-19 NAA NEGATIVE (NEGATIVE)
[2022-08-04] MEDS ORDERED: Sodium Chloride 0.9% 1,000 ML IV SCH (23:15)
[2022-08-04 23:30] LABS: ESTIMATED GFR 47 mL/min (>60)
[2022-08-04] MEDS ORDERED: methylPREDNISolone Sodium Succinate 125 MG/2 ML SDV IVPUSH ONE (23:42)
[2022-08-05] MEDS ORDERED: Albuterol/Ipratropium 3.0-0.5 MG/3 ML Neb Soln NEB ONE (02:55)
[2022-08-05] MEDS ORDERED: Morphine 2 MG/ML SYRINGE IVPUSH ONE (02:56)
[2022-08-05 03:55] VITALS: BP 138/73; PULSE 99
== END 2022-08-05 03:55 | disposition critical access hospital (66) ==
LOC: JP.ED 21:47
DX: J44.1 Chronic obstructive pulmonary disease with (acute) exacerbation (principal); J96.01 Acute respiratory failure with hypoxia; I50.9 Heart failure, unspecified; M62.82 Rhabdomyolysis; R41.0 Disorientation, unspecified; E11.42 Type 2 diabetes mellitus with diabetic polyneuropathy; H10.32 Unspecified acute conjunctivitis, left eye; I48.20 Chronic atrial fibrillation, unspecified; N17.9 Acute kidney failure, unspecified; E78.00 Pure hypercholesterolemia, unspecified; R79.1 Abnormal coagulation profile; Z79.899 Other long term (current) drug therapy; Z79.01 Long term (current) use of anticoagulants; Z79.4 Long term (current) use of insulin; Z20.822 Contact with and (suspected) exposure to COVID-19; W18.30XA Fall on same level, unspecified, initial encounter
CPT/HCPCS: 0241U; 36415; 36600; 70450; 71250; 80053; 81001; 82550; 82803; 82947; 83605; 83880; 84145; 84484; 85025; 85610; 86140; 93005; 94640; 94660; 96374; 96375; 99285; A9270; J2270; J2930; J3490; J7030; J7620

== ENCOUNTER 2022-09-04 10:58 | Emergency (ER) | payer MEDICARE ==
[2022-09-04 11:04] VITALS: BP 110/59; PULSE 63
[2022-09-04] MEDS ORDERED: Sodium Chloride 0.9% 10 ML Syringe FLUSH PRN (11:28)
[2022-09-04] MEDS ORDERED: Albuterol/Ipratropium 3.0-0.5 MG/3 ML Neb Soln NEB ONE (11:30)
[2022-09-04 12:32] LABS: CORONAVIRUS COVID-19 NAA NEGATIVE (NEGATIVE)
== END 2022-09-04 13:00 ==
LOC: JP.ED 10:58
DX: J44.9 Chronic obstructive pulmonary disease, unspecified (principal); J20.9 Acute bronchitis, unspecified; I48.91 Unspecified atrial fibrillation; E78.00 Pure hypercholesterolemia, unspecified; E11.9 Type 2 diabetes mellitus without complications; F17.210 Nicotine dependence, cigarettes, uncomplicated; Z79.01 Long term (current) use of anticoagulants; Z79.899 Other long term (current) drug therapy; Z79.4 Long term (current) use of insulin; Z20.822 Contact with and (suspected) exposure to COVID-19
CPT/HCPCS: 0241U; 36415; 71046; 83605; 84484; 85025; 99285; J3490; J7620